=== PATIENT | male | born 1985 | race Caucasian/White ===

== ENCOUNTER 2016-10-28 19:54 | Emergency (ER) | payer BC, OTHER ==
--- NOTE | ~2016-10-28 | CR172 ---
[facility]. [facility] A Service of [facility] & [facility] RADIOLOGY TEXT RESULTS PATIENT: WILDER LIN LOCATION: SED : [birth year] UNIT #: [id number] AGE: [address]: Dirk Heck DO SEX: M ORDER DR: [id number] [address] [address] [id number] E MR#: [id number] Acc #: [id number] NAME: WILDER LIN : 1985 SEX: M STUDY DATE/TIME: 10/28/2016 19:53 UNIT: SED ROOM: STUDY DESCRIPTION: CR Knee 3 Views Lt Attending Physician: Dirk Heck D.O. Ordering Physician: Dirk Heck D.O. Primary Care Physician: Ophelia Bowling A.P.R.N. MEDICAL IMAGING REPORT This report is preliminary unless electronic signature is present. EXAM Left knee, 3 views HISTORY Knee pain and swelling for 1 week. No injury. FINDINGS 3 views of the left knee demonstrate satisfactory bone alignment. No fracture, joint space narrowing or effusion. Normal mineralization. IMPRESSION Negative left knee. Dictated by... Nic Brown M.D. THIS IS AN ELECTRONICALLY VERIFIED REPORT Nic Brown M.D. at 10/29/2016 2:29 PM DFL/psc TD: 10/28/2016 23:27 JOB #: [id number] MEDICAL IMAGING REPORT Page 1 of 1
--- NOTE | ~2016-10-28 | US85 ---
[facility] A Service of [facility] RADIOLOGY TEXT RESULTS PATIENT: WILDER LIN LOCATION: SED : [birth year] UNIT #: [id number] AGE: [address]: Dirk Heck DO SEX: M ORDER DR: [id number] [place] [id number] E MR#: [id number] Acc #: [id number] NAME: WILDER LIN : 1985 SEX: M STUDY DATE/TIME: 10/28/2016 20:47 UNIT: SED ROOM: STUDY DESCRIPTION: [facility]il or [facility] Stdy Attending Physician: Dirk Heck D.O. Ordering Physician: Dirk Heck D.O. Primary Care Physician: Ophelia Bowling A.P.R.N. MEDICAL IMAGING REPORT This report is preliminary unless electronic signature is present. EXAM Left lower extremity venous ultrasound HISTORY Left leg pain for 1 week. No injury. TECHNIQUE Venous ultrasound examination of the left lower extremity was performed using grayscale, spectral Doppler and color flow Doppler imaging. FINDINGS The examination is negative. There is no evidence of left lower extremity deep venous thrombus from the groin to the lower calf. Visualized greater saphenous vein is also patent. IMPRESSION Negative examination. No evidence of left lower extremity deep venous thrombosis. Dictated by... Nic Brown M.D. THIS IS AN ELECTRONICALLY VERIFIED REPORT Nic Brown M.D. at 10/29/2016 2:29 PM DFL/psc TD: 10/29/2016 00:07 JOB #: [id number] MEDICAL IMAGING REPORT [facility] A Service [facility] RADIOLOGY TEXT RESULTS PATIENT: WILDER LIN LOCATION: SED : [birth year] UNIT #: [id number] AGE: [address]: Hottman,Dirk M DO SEX: M ORDER DR: Page 1 of 1
[~2016-10-28 19:54] MED LIST: AMBIEN10 MG PO; ANTI-DIARRHEAL2 M1 PO; ATORVASTATIN CA40 MG PO; BENTYL20 MG PO; CATAPRES0.1 MG PO; CELEXA20 MG PO; CHANTIX1 EACH; DORYX100 M1 PO; FAMOTIDINE20 M1 PO; FLAGYL PO; FLEXERIL10 MG PO; GABAPENTIN400 M2 PO; IBUPROFEN800 MG PO; KEFLEX PO; LEVAQUIN PO; MORPHINE SULFAT30 M3 PO; NO HOME MEDS; PERCOCET 10/3251 TAB PO; PHENERGAN25 MG PO; ULTRAM; VICODIN 5/1 TAB 5/50 PO; VICODIN 5/500 T1 TAB PO; VITAMIN D50000 UNIT PO; VOLTAREN75 MG PO; ZOFRAN PO
== END 2016-10-28 21:43 | disposition home or self-care (01) ==
LOC: SED 19:54
DX: S86.912A Strain of unspecified muscle(s) and tendon(s) at lower leg level, left leg, initial encounter (principal); F17.200 Nicotine dependence, unspecified, uncomplicated; X58.XXXA Exposure to other specified factors, initial encounter; Y92.9 Unspecified place or not applicable
CPT/HCPCS: 73562; 93971; 99284